=== PATIENT | female | born 1990 | race Caucasian/White ===

== ENCOUNTER → 2016-03-08 | Outpatient (CLI) | payer BC ==
[~2016-03-08] MED LIST: AMPH20TA2 PO; BUPR100T13 PO
[2016-03-10 03:42] LABS: CHLAMYDIA TRACH RNA*** NOT DETECTED (NOT DETECTED); GC (NEIS GONORRHOEAE)RNA** NOT DETECTED (NOT DETECTED)
== END | disposition home or self-care (01) ==
LOC: C.LAB1850 10:17
PROVIDERS: ATTEND Obstetrics & Gynecology
DX: Z11.3 Encounter for screening for infections with a predominantly sexual mode of transmission (principal)

== ENCOUNTER → 2016-11-18 | Outpatient (CLI) | payer BC | END | disposition home or self-care (01) | LOC: C.LABSPEC 17:22 | PROVIDERS: ATTEND Physician Assistant | DX: N89.8 Other specified noninflammatory disorders of vagina (principal) ==

== ENCOUNTER → 2016-12-21 | Outpatient (CLI) | payer BC | END | disposition home or self-care (01) | LOC: C.LABSPEC 13:17 | PROVIDERS: ATTEND Physician Assistant | DX: L29.8 Other pruritus (principal) ==

== ENCOUNTER 2017-01-05 01:19 | Emergency (ER) | payer BC ==
[~2017-01-05] VITALS: Ht 160 cm; Wt 92.7 kg
[2017-01-05 01:22] VITALS: TEMP 36.7; Ht 160 cm; Wt 92.7 kg
--- NOTE | 2017-01-05 01:48 | EMERGENCY ROOM VISIT NOTE ---
History Report prepared by Heike: Andrei Molina Under the Supervision of: Dr. Jackelyn Eduardo D.O. First contact with patient: 01:26 Chief Complaint: CHEST PAIN Stated Complaint: CHEST PAIN,DIZZINESS,LIGHTHEADED Nursing Triage Summary: pt ambulated to triage reports " I thought I was having a heart attack one week ago, but then the pain went away and comes and goes since then" pt states pain is in center of chest radiates to L side . denies NV or sob History of Present Illness The patient is a 26 year old female who presents to the Emergency Room with complaints of intermittent chest pain starting a week ago. The patient currently rates her discomfort as a 6/10 in severity.She additionally states that she is dizzy, light headed, and shortness of breath which is worse while walking. She states that she thought that the pain was a heart attack, and then just assumed it was indigestion. The patient states that her pain is in the left breast, and then today it is going across her chest. 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 She denies any cardiac history, and she states that her dad has heart disease and had a heart attack in his 30s or 40s. 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 The patient notes that she has been having flu like symptoms and a cough for the past month and a half. The patient states that there is a possible chance of , and she is not on control. Source of History: patient Onset: a week ago Position: chest Symptom Intensity: 6/10 Timing: intermittent Associated Symptoms: + cough, + SOB Note: Associated symptoms: Dizziness and light headedness Review of Systems See HPI for pertinent positives & negatives. A total of 10 systems reviewed and were otherwise negative. Past Medical & Surgical Medical Problems: (1) ADD (attention deficit disorder) (2) Freda's disease Family History FH: [place] (myocardial infarction) Heart disease Social History Smoking Status: Never Smoker Alcohol Use: occasionally Drug Use: none Marital Status: single Occupation Status: [employer] student Current/Historical Medications Scheduled Amphetamine-Dextroamphetamine 20MG (Adderall 20MG), 20 MG PO BID Allergies Uncoded Allergies: ANTIDEPRESSANT (Allergy, Unknown, unknown name, went blind, 02/22/16) Physical Exam Vital Signs Date Time Temp Pulse Resp B/P (MAP) Pulse Ox O2 Delivery O2 Flow Rate FiO2 01/05/17 03:48 84 16 125/83 99 01/05/17 02:30 77 16 132/85 99 Room Air 01/05/17 01:37 110 01/05/17 01:22 36.7 106 20 150/96 100 Room Air Physical Exam HEENT: Head - normocephalic and atraumatic Pupils are equal, round, and reactive to light. Extraocular eye muscles are intact, and sclera are anicteric. Nose - moist nasal mucosa without discharge. Mouth - moist buccal mucosa. Oropharynx is nonerythematous and there is no tonsillar exudate or edema noted. Neck: Supple; no JVD, nuchal rigidity, cervical lymphadenopathy. Heart: Tachycardic rate and regular rhythm. There is a normal S1 and S2 with no murmurs, clicks, or gallops appreciated. Lungs: Clear to auscultation bilaterally with no wheezes, rales, or rhonchi. Abdomen: Soft, completely nontender, nondistended, with good bowel sounds. There are no palpable pulsatile masses or hepatosplenomegaly. There is no guarding, rigidity, or rebound noted. Extremities: No evidence of cyanosis, clubbing, or edema. There are easily palpable peripheral pulses. Skin: Skin redness about her neck, chest, and shoulders. warm and dry with good turgor and no rashes. Medical Decision & Procedures ER Provider Diagnostic Interpretation: X-ray results as stated below per interpretation by me and the radiologist: Chest One View: No cardiomegaly. No pulmonary findings. Laboratory Results 01/05/17 01:35 01/05/17 01:35 Test 01/05/17 01:35 01/05/17 01:41 01/05/17 03:03 Red Blood Count 4.36 M/uL (4.2-5.4) Mean Corpuscular Volume 90.6 fL (80-100) Mean Corpuscular Hemoglobin 30.5 pg (25-34) Mean Corpuscular Hemoglobin Concent 33.7 g/dl (32-36) RDW Standard Deviation 45.1 fL (36.4-46.3) RDW Coefficient of Variation 13.6 % (11.5-14.5) Mean Platelet Volume 11.2 fL (7.4-10.4) D-Dimer < 190 ug/L FEU (0-500) Anion Gap 5.0 mmol/L (3-11) Est Creatinine Clear Calc Drug Dose 148.9 ml/min Estimated GFR () 145.5 Estimated GFR (Non- 125.5 BUN/Creatinine Ratio 12.1 (10-20) Calcium Level 8.7 mg/dl (8.5-10.1) Total Bilirubin 0.3 mg/dl (0.2-1) Aspartate Amino Transf (AST/SGOT) 11 U/L (15-37) Alanine Aminotransferase (ALT/SGPT) 16 U/L (12-78) Alkaline Phosphatase 61 U/L (45-117) Total Protein 7.8 gm/dl (6.4-8.2) Albumin 3.7 gm/dl (3.4-5.0) Globulin 4.1 gm/dl (2.5-4.0) Albumin/Globulin Ratio 0.9 (0.9-2) Thyroid Stimulating Hormone (TSH) 3.640 uIu/ml (0.300-4.500) Urine Test NEG (NEG) Bedside Troponin I < 0.030 ng/ml (0-0.045) Laboratory results per my review. ECG Indication: chest pain Rate (beats per minute): 97 Rhythm: normal sinus Findings: no acute ischemic change, no ectopy ED Course 0126: Past medical records reviewed. The patient was evaluated in room A4. A complete history and physical exam was performed. A twelve-lead EKG was obtained as described above. Labs were drawn as above. A portable chest x-ray was obtained. 0300: I reevaluated the patient, and she feels better. Her heart rate and blood pressure has come down. 0334: Upon reevaluation, the patient is symptoms free, and her blood pressure normalized. I discussed findings and results with her. She verbalized agreement of the treatment plan. She was discharged home. Medical Decision The patient is a 26 year old female who presents to the ED with chest pain. Differential diagnosis includes anxiety, costochondritis, cardiac ischemia, pleurisy, and PE. Lab results: was negative, white count was 13.7, stable H&H, TSH 3.6, glucose of 102, normal LFT and renal function, D-Dimer less than 190, and troponin was 0. The patient has had intermittent episodes of chest pain over the past couple of days. It does not seem to be related exclusively to exercise or rest. The patient admits that she suffers from insomnia and that this does not help her overall health. The patient has negative cardiac enzymes, normal d-dimer, negative EKG and chest x-ray. Nose no evidence of acute cardiac ischemia or PE. The patient feels much better after resting here in the emergency department. She was encouraged to follow up with her PCP if symptoms persist. She can return here to the emergency department if symptoms worsened. Medication Reconcilliation Current Medication List: was personally reviewed by me Blood Pressure Screening Patient's blood pressure: Elevated blood pressure Blood pressure disposition: Elevated BP felt to be situational Impression Primary Impression: Atypical chest pain Scribe Attestation The scribe's documentation has been prepared under my direction and personally reviewed by me in its entirety. I confirm that the note above accurately reflects all work, treatment, procedures, and medical decision making performed by me. Departure Information Dispostion Home / Self-Care Referrals No Doctor, Assigned (PCP) Forms HOME CARE DOCUMENTATION FORM, IMPORTANT VISIT INFORMATION Patient Instructions ED Chest Pain Atypical Unkn Cause, My [facility] Additional Instructions Rest Limit stress and anxiety. Follow up with PCP about insomnia and any further episodes of chest discomfort return to the ER if symptoms worsen.
[2017-01-05 01:54] LABS: HEMATOCRIT 39.5 % (37-47); MEAN CELL VOLUME 90.6 fL (80-100); MEAN CORPUSCULAR HEMOGLOBIN 30.5 pg (25-34); MEAN CORPUSCULAR HGB CONC 33.7 g/dl (32-36); MEAN PLATELET VOLUME 11.2 fL (7.4-10.4); PLATELET COUNT 242 K/uL (130-400); RED BLOOD COUNT 4.36 M/uL (4.2-5.4); WHITE BLOOD COUNT 13.77 K/uL (4.8-10.8)
[2017-01-05 02:11] LABS: BUN/CREATININE RATIO 12.1 (10-20); CALCIUM 8.7 mg/dl (8.5-10.1); CREATININE 0.63 mg/dl (0.60-1.20); POTASSIUM 3.4 mmol/L (3.5-5.1)
[2017-01-05 02:22] LABS: ALB/GLOB RATIO 0.9 (0.9-2); THYROID STIMULATING HORMONE 3.64 uIu/ml (0.300-4.500)
[2017-01-05 03:48] VITALS: BP 125/83; PULSE 84; O2SAT 99
--- NOTE | 2017-01-05 08:31 | DIAGNOSTIC IMAGING REPORT ---
SINGLE VIEW CHEST CLINICAL HISTORY: Atypical chest pain. Dyspnea. FINDINGS: An AP, portable, upright chest radiograph is obtained. No prior studies are available for comparison at the time of dictation. The examination is mildly degraded by portable technique and patient rotation. The cardiomediastinal silhouette is unremarkable. There are low lung volumes with bibasilar atelectasis. The lungs and pleural spaces are otherwise clear. No pneumothorax is seen. The bony thorax is grossly intact. IMPRESSION: Low lung volumes with no acute cardiopulmonary abnormality. Electronically signed by: Sanju Read M.D. 01/05/2017 8:29 AM Dictated Date/Time: 01/05/2017 7:24 AM
== END 2017-01-05 03:49 | disposition home or self-care (01) ==
LOC: C.EDB 01:19 → C.EDA 03:49
DX: R07.89 Other chest pain (principal); R42 Dizziness and giddiness; R06.02 Shortness of breath; F90.9 Attention-deficit hyperactivity disorder, unspecified type; Z82.49 Family history of ischemic heart disease and other diseases of the circulatory system; Z79.899 Other long term (current) drug therapy

== ENCOUNTER 2017-06-02 09:02 | Emergency (ER) | payer BC ==
[~2017-06-02] VITALS: Ht 162.6 cm; Wt 87.9 kg
[~2017-06-02 09:02] MED LIST changes: -BUPR100T13 PO
[2017-06-02 09:09] VITALS: TEMP 37; Ht 162.6 cm; Wt 87.9 kg
[2017-06-02] MEDS ORDERED: MULT-506 PO (09:28)
[2017-06-02] MEDS ORDERED: IBUPROFEN 800 MG TAB PO STA (09:36)
--- NOTE | 2017-06-02 10:04 | EMERGENCY ROOM VISIT NOTE ---
History Report prepared by Heike: Andrei Molina Under the Supervision of: Dr. Gabriel Blue M.D. First contact with patient: 09:33 Chief Complaint: CALF PAIN Stated Complaint: PAIN IN CALF, FOOT TURNS PURPLE AT TIMES, DVT History of Present Illness The patient is a 27 year old female who presents to the Emergency Room with complaints of worsening right calf pain for the past week and a half. The patient additionally notes that she has had on and off chest pain for the past month. She states that she went to [facility], and she was diagnosed with musculoskeletal pain. She notes that she sits for long period of time daily, though she is not on control. She denies any fever, chills, cough, congestion, abdominal pain, and nausea. The patient states that nothing makes the pain better or worse. She notes that she is stressed right now, and she has had similar pain in the past due to anxiety. The patient states that she does not smoke, and she does not exercise or walk to work since she works from home. She denies any alcohol or drug use. The patient states that she has a history of Freda's and ADD, and she takes Adderall daily. Source of History: patient Onset: past week and a half Position: other (right calf) Timing: worsening Modifying Factors (Relieving): other (nothing) Associated Symptoms: + chest pain, No fevers, No chills, No cough, No nausea , No abdominal pain Review of Systems See HPI for pertinent positives and negatives. A total of ten systems were reviewed and were otherwise negative. Past Medical & Surgical Medical Problems: (1) ADD (attention deficit disorder) (2) Freda's disease Family History FH: [place] (myocardial infarction) Heart disease Social History Smoking Status: Never Smoker Alcohol Use: occasionally Drug Use: none Marital Status: single Occupation Status: [employer] student Current/Historical Medications Scheduled Amphetamine-Dextroamphetamine 20MG (Adderall 20MG), 20 MG PO BID Multivitamin (Multivitamin), 1 TAB PO DAILY Allergies Coded Allergies: Amphetamine (Unverified Allergy, Unknown, hives, 06/02/17) allergic to TEVA brand only Aripiprazole (Unverified Allergy, Unknown, hives, 06/02/17) [place] [facility] (Unverified Allergy, Unknown, suicidal, 06/02/17) Dextroamphetamine (Unverified Allergy, Unknown, hives, 06/02/17) allergic to TEVA brand only Lisdexamfetamine (Unverified Allergy, Unknown, suicidal, 06/02/17) Melatonin (Unverified Allergy, Unknown, hives, 06/02/17) Red Dye (Unverified Allergy, Unknown, suicidal, 06/02/17) Yellow Dye (Unverified Allergy, Unknown, suicidal, 06/02/17) Uncoded Allergies: ANTIDEPRESSANT (Allergy, Unknown, unknown name, 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 Oropharynx unremarkable. EYES: Normal conjunctiva. Sclera non-icteric. NECK: Supple. No nuchal rigidity. FROM. No JVD. RESPIRATORY: Clear to auscultation. CARDIAC: Regular rate, normal rhythm. Extremities warm and well perfused. Pulses equal. ABDOMEN: Soft, non-distended. No tenderness to palpation. No rebound or guarding. No masses. RECTAL: Deferred. MUSCULOSKELETAL: Chest examination reveals no tenderness. The back is symmetrical on inspection without obvious abnormality. There is no CVA tenderness to palpation. No joint edema. LOWER EXTREMITIES: Calves are equal size bilaterally and non-tender. No edema. No discoloration. NEURO: Normal sensorium. No sensory or motor deficits noted. SKIN: No rash or jaundice noted. Medical Decision & Procedures ER Provider Diagnostic Interpretation: Radiology results as stated below per my review and radiologist interpretation: ULTRASOUND R VENOUS DOPP LOWER EXT UNILAT CLINICAL HISTORY: Right leg pain and swelling COMPARISON STUDY: No previous studies for comparison. FINDINGS: Real-time and color flow Doppler imaging were performed. Flow was seen within the femoral, popliteal and calf veins with no intraluminal thrombus demonstrated. The saphenous vein is patent. IMPRESSION: No evidence of right lower extremity DVT. Electronically signed by: Bryn Marin M.D. 06/02/2017 10:54 AM Dictated Date/Time: 06/02/2017 10:54 AM Medications Administered Medications (Trade) Dose Ordered Sig/Stu Route Start Time Stop Time Status Last Admin Dose Admin Ibuprofen (Motrin Tab) 800 mg NOW STAT PO 06/02/17 09:36 06/02/17 09:43 DC 06/02/17 09:46 800 MG ECG Per My Interpretation Indication: other (calf pain) Rate (beats per minute): 91 Rhythm: normal sinus Findings: no acute ischemic change, other (normal axis) ED Course 0933: The patient was evaluated in room B7. A complete history and physical exam was performed. 1110: I reevaluated the patient. Discussed results and discharge instructions: she verbalized understanding and agreement. The patient is ready for discharge. Medical Decision I reviewed the patient's past medical history, medications, and the nursing notes as described above. Differential diagnosis: Etiologies such as DVT, musculoskeletal, infection, joint effusion, trauma, lymphedema, idiopathic, CHF, as well as others were entertained.. The patient is a 27 y/o woman with a pmhx of anxiety presents to the emergency department with right calf pain for the past week in the setting of intermittent CP for the past month per HPI. Patient is concerned that she may have a DVT since she works from home daily without getting up for 8 hours or more. Of note, the patient was seen in the ED for CP 12/2016 with negative w/u including negative D-dimer. The patient was seen by [facility] and was diagnosed with muscle strain. On arrival, the patient is well-appearing in NAD, AFVSS. On exam the patient has mild right calf pain with no erythema, warmth, or edema. Distal PMS intact. EKG unremarkable/unchanged from December. Duplex negative for DVT. Given well-appearing patient with previous negative w/u for CP, EKG unchanged and unremarkable, no indication for additional ED w/u at this time. Leg pain most likely muscle strain/cramping. Findings and plan for follow-up reviewed with patient. Patient agreeable and d/c'd per discharge instructions. Medication Reconcilliation Current Medication List: was personally reviewed by me Blood Pressure Screening Patient's blood pressure: Elevated blood pressure Blood pressure disposition: Elevated BP felt to be situational Impression Primary Impression: Right calf pain Additional Impression: Strain of calf muscle Scribe Attestation The scribe's documentation has been prepared under my direction and personally reviewed by me in its entirety. I confirm that the note above accurately reflects all work, treatment, procedures, and medical decision making performed by me. Departure Information Dispostion Home / Self-Care Referrals [facility] (PCP) Forms HOME CARE DOCUMENTATION FORM, IMPORTANT VISIT INFORMATION Patient Instructions ED Muscle Pain Leg Cramps, ED Strain Muscle Ext, My [facility] Additional Instructions Please follow up with S in the next 1-3 days for re-evaluation. Your symptoms are most likely due to muscle strain. Otherwise, your exam, EKG, and ultrasound did not show signs of an emergent condition at this time. Acetaminophen or ibuprofen for pain and fevers as needed. Drink plenty of fluids to ensure hydration. Return to the emergency department for worsening symptoms as described in the accompanying instructions. Problem Qualifiers
--- NOTE | 2017-06-02 10:55 | DIAGNOSTIC IMAGING REPORT ---
ULTRASOUND R VENOUS DOPP LOWER EXT UNILAT CLINICAL HISTORY: Right leg pain and swelling COMPARISON STUDY: No previous studies for comparison. FINDINGS: Real-time and color flow Doppler imaging were performed. Flow was seen within the femoral, popliteal and calf veins with no intraluminal thrombus demonstrated. The saphenous vein is patent. IMPRESSION: No evidence of right lower extremity DVT. Electronically signed by: Brny Marin M.D. 06/02/2017 10:54 AM Dictated Date/Time: 06/02/2017 10:54 AM
[2017-06-02 11:14] VITALS: BP 110/80; PULSE 66; O2SAT 96
== END 2017-06-02 11:35 | disposition home or self-care (01) ==
LOC: C.EDB 09:03
DX: M79.661 Pain in right lower leg (principal); S86.811A Strain of other muscle(s) and tendon(s) at lower leg level, right leg, initial encounter; X58.XXXA Exposure to other specified factors, initial encounter; F90.9 Attention-deficit hyperactivity disorder, unspecified type; E06.3 Autoimmune thyroiditis; Z88.8 Allergy status to other drugs, medicaments and biological substances; Z91.09 Other allergy status, other than to drugs and biological substances